=== PATIENT | male | born 1985 | race Two or more races ===

== ENCOUNTER 2017-07-01 15:55 | Emergency (ER) | payer MEDICAID ==
[~2017-07-01] VITALS: Ht 154.9 cm; Wt 85.7 kg
[2017-07-01 16:00] VITALS: BP 114/66
[2017-07-01] MEDS ORDERED: LORazepam 2MG/ML-1ML VIAL IM ONE (18:30)
== END 2017-07-01 19:07 | disposition home or self-care (01) ==
LOC: ER 16:03
DX: F41.9 Anxiety disorder, unspecified (principal); I10 Essential (primary) hypertension
CPT/HCPCS: 93005; 96372; 99283; J2060